=== PATIENT | male | born 1945 | race Caucasian/White ===

== ENCOUNTER 2016-11-09 06:31 | Observation (INO) | payer MEDICARE ==
[2016-11-08 16:00] LABS: HEMOGLOBIN 15.9 g/dL (13.7-18.0)
[2016-11-08 16:12] LABS: BLOOD UREA NITROGEN 14 mg/dL (7-18)
[2016-11-08 16:16] LABS: ASPARTATE AMINO TRANSFERASE 12 U/L (15-37)
[~2016-11-09] VITALS: Ht 167.6 cm; Wt 97.1 kg
[~2016-11-09 06:31] MED LIST: ASPI-496 PO; ATOR10TA PO; DIGO125T PO; IRON PO; MECL25TA4 PO; METF500T4 PO; OMEG1CAP6 PO; PANT40TA5 PO; SOTA160T PO; WARF5TAB7 PO
[2016-11-09] MEDS ORDERED: SODIUM CHLORIDE 0.9% 1,000 ML IV SCH (06:49)
[2016-11-09 06:54] VITALS: BP 130/90
[2016-11-09] MEDS ORDERED: MIDAZOLAM 1 MG/ML, 5ML ONE (07:49)
[2016-11-09] MEDS ORDERED: FENTANYL PF 250 MCG/5ML ONE (07:49)
[2016-11-09] MEDS ORDERED: ROCURONIUM 10 MG/ML ONE (07:51)
[2016-11-09] MEDS ORDERED: ONDANSETRON 2MG/ML, 2ML ONE (07:51)
[2016-11-09] MEDS ORDERED: CEFAZOLIN 1,000 MG ONE (07:51)
[2016-11-09] MEDS ORDERED: SUCCINYLCHOLINE 20 MG/ML, 10ML ONE (07:51)
[2016-11-09] MEDS ORDERED: PHENYLEPHRINE 10 MG/ML ONE (07:51)
[2016-11-09] MEDS ORDERED: DEXAMETHASONE 4 MG/ML, 1ML ONE (07:51)
[2016-11-09] MEDS ORDERED: PROPOFOL 10 MG/ML, 20ML ONE (07:51)
[2016-11-09] MEDS ORDERED: HEPARIN 1,000 UNITS/ML, 10ML ONE (08:16)
[2016-11-09] MEDS ORDERED: LIDOCAINE 2%, 20ML ONE (08:16)
[2016-11-09] MEDS ORDERED: PROTAMINE SULFATE 10 MG/ML, 5ML ONE (10:33)
[2016-11-09] MEDS ORDERED: ZOLPIDEM 5MG TABLET PO PRN (11:00)
[2016-11-09] MEDS ORDERED: ACETAMINOPHEN 325 MG TABLET PO PRN ×2 (11:00→11:30)
[2016-11-09] MEDS ORDERED: LABETALOL 5MG/ML, 20ML IV PRN (11:30)
[2016-11-09] MEDS ORDERED: ALBUTEROL SULFATE 2.5 MG/3 ML NPPB PRN (11:30)
[2016-11-09] MEDS ORDERED: HYDROmorphone 1 MG/ML, 1ML IV PRN (11:30)
[2016-11-09] MEDS ORDERED: OXYcodone 5 MG/5 ML ORAL.SOL UDC PO PRN (11:30)
[2016-11-09] MEDS ORDERED: FENTANYL PF 100 MCG/2ML IV PRN (11:30)
[2016-11-09] MEDS ORDERED: hydrALAzine 20 MG/ML, 1ML IV PRN (11:30)
[2016-11-09] MEDS ORDERED: PROMETHAZINE 25 MG/ML, 1ML IV PRN (11:30)
[2016-11-09] MEDS ORDERED: ONDANSETRON 2MG/ML, 2ML IVPush PRN (11:30)
[2016-11-09] MEDS ORDERED: MEPERIDINE/PF 25MG/0.5ML IVPush PRN (11:30)
[2016-11-09] MEDS ORDERED: MIDAZOLAM 1 MG/ML, 2ML IV PRN (11:30)
[2016-11-09 13:17] VITALS: BP 127/78
[2016-11-09 14:54] VITALS: BP 130/70
[2016-11-09 17:20] VITALS: BP 135/70
[2016-11-09] MEDS: metFORMIN 500 MG TABLET PO SCH (17:32)
[2016-11-09] MEDS: PANTOPROZOLE 40MG TABLET PO SCH (17:32)
[2016-11-09 18:53] VITALS: BP 122/74
[2016-11-09] MEDS ORDERED: SOTALOL HCL 160 MG PO SCH (21:00)
[2016-11-09] MEDS ORDERED: ATORVASTATIN 10 MG TABLET PO SCH (21:00)
[2016-11-09] MEDS ORDERED: WARFARIN 5 MG TABLET PO-COUM SCH (21:00)
[2016-11-10 01:06] VITALS: BP 142/82
[2016-11-10 06:54] VITALS: BP_SYST 147; BP_SYST 148; BP_DIAS 84; BP_DIAS 87
[2016-11-10] MEDS ORDERED: DIGOXIN 0.125 MG TABLET PO SCH (09:00)
[2016-11-10] MEDS ORDERED: FERROUS SULFATE 325 MG TABLET PO SCH (09:00)
[2016-11-10] MEDS ORDERED: ASPIRIN 81 MG TABLET EC PO SCH (09:00)
[2016-11-10] MEDS ORDERED: MECLIZINE 12.5 MG TABLET PO SCH (09:00)
[2016-11-10] MEDS ORDERED: OMEGA-3/FISH OIL CAPSULE PO SCH ×2 (09:00→09:38)
[2016-11-10 09:50] VITALS: BP 147/90
[2016-11-10] MEDS: PANTOPROZOLE 40MG TABLET PO SCH (09:50)
[2016-11-10] MEDS: metFORMIN 500 MG TABLET PO SCH (09:55)
[2016-11-10] MEDS ORDERED: SOTALOL 80MG TABLET PO SCH (21:00)
== END 2016-11-10 13:47 | disposition home or self-care (01) ==
LOC: CACL 06:31 → EDSTATUS 08:00 → ORIP 10:45 → 5SO 12:30 → DCLOUNGE 11-10 13:30
PROVIDERS: ADMIT Internal Medicine Cardiovascular Disease; ATTEND Internal Medicine Cardiovascular Disease
DX: I48.0 Paroxysmal atrial fibrillation (principal); I48.92 Unspecified atrial flutter; I10 Essential (primary) hypertension; I45.9 Conduction disorder, unspecified; Z79.82 Long term (current) use of aspirin; Z95.0 Presence of cardiac pacemaker
CPT/HCPCS: 36415; 71020; 80053; 82962; 85025; 85347; 85610; 85730; 93005; 93306; 93312; 93321; 93325; 93613; 93655; 93656; 93662; C1730; C1731; C1732; C1759; C1766; C1893; C1894; G0378; J0330; J0690; J1100; J1644; J2250; J2370; J2405; J2704; J2720; J3010; J3490